=== PATIENT | female | born 1985 | race Caucasian/White ===

== ENCOUNTER 2019-11-07 07:51 | Inpatient (IN) ==
[2019-11-07] MEDS ORDERED: OXYTOCIN 30 UNITS/500 ML BAG IV PRN ×3 (08:19→20:58)
[2019-11-07 08:38] LABS: Hemoglobin 12.2 g/dL (12.0-16.0); Mean Corpuscular Hemoglobin 30.3 pg (25-34); Mean Corpuscular Volume 91.8 fL (80-100); Mean Platelet Volume 10.8 fL (7.4-10.4); Platelet Count 272 K/uL (130-400); RDW Standard Deviation 46.7 fL (36.4-46.3); Red Blood Count 4.03 M/uL (4.2-5.4); White Blood Count 10.28 K/uL (4.8-10.8)
--- NOTE | 2019-11-07 09:57 | History & Physical Report ---
Date of Service November 07, 2019 Assessment & Plan (1) : Admit, IV fluids, EFM/toco. Cole bulb inserted, tolerated well. Inflated to 35cc sterile fluid. Plans for epidural. History of Present Illness Chief Complaint: induction of labor Primary Care Provider: Armani Monson MD 34yo @ 40 0/7 here for IOL. complicated by hypothyroidism and IVF/ICSI conception. + movement, no vaginal bleeding, no leaking fluid. Rare ctx. Allergies Allergy/AdvReac Type Severity Reaction Status Date / Time No Known Allergies Allergy Verified 11/07/19 08:01 Home Medications Home Medications Medication Instructions Recorded Confirmed Type vit-iron fum-folic ac 1 tab PO DAILY 11/02/19 11/07/19 History [ Vitamin] levothyroxine 125 mcg PO DAILY 11/07/19 11/07/19 History Patient History Medical History Alexander's thyroiditis (Chronic) Surgical History S/P myringotomy with insertion of tube S/P surgical removal of pilonidal cyst S/P tonsillectomy S/P wisdom tooth extraction S/P wrist surgery Family History Grandfather (Maternal) Diabetes Father Heart disease Grandfather (Maternal) Hypertension Grandfather (Maternal) Kidney disease Mother Thyroid disease Social History Preferred Language: [place] Islander Mosaicist Required: No Beliefs That Will Affect Care: None marital status: marital status details: Antonino Jimenez (35) [phone] Current Living Situation: Family Current Living Situation Comment: no pets current occupational status: employed current occupation: Faculty [employer] Other Information That Helps Us Care for You: No Feels Safe at Home: Yes Safety Concerns: Feels Safe At This Time Smoking Status: Never smoker Second Hand Exposure: No ; Hx Alcohol Use: No Hx Substance Use: No Review of Systems All systems reviewed & are unremarkable except as noted in HPI & below Physical Exam Physical Exam: FHT Cat 1 [place]ilvie rare SVE 390/-2 Constitutional: WD/WN, vitals as above Respiratory: normal respiratory effort, lungs clear to auscultation no respiratory distress Cardiovascular: Rate/Rhythm: regular rate and regular rhythm Gastrointestinal (Abdomen): Inspection/Auscultation: abdomen normal to inspection Percussion/Palpation: abdomen soft; abdomen nontender Gravid. No s/s chorio or abruption. Skin: no rashes, warm and dry Psychiatric: A+Ox3, euthymic affect Results & Data Vital Signs (Past 12 Hours) Vital Signs Temp Pulse Resp BP 11/07/19 08:07 36.3 C L 20 11/07/19 07:58 105 H 129/84 Coding Level of Care Code None Diagnoses Z34.90
[2019-11-07] MEDS: LACTATED RINGER'S 1,000 ML IV PRN ×2 (10:23→13:37)
--- NOTE | 2019-11-07 13:02 | Labor Progress Brief Note ---
Date of Service November 07, 2019 Subjective Comfortable with ctx. FHT Cat 1, More[place] Q 2 SVE 5-6/80/-1 AROM clear fluid. Results & Data Vital Signs (Past 12 Hours) Vital Signs Temp Pulse Resp BP 11/07/19 12:26 77 122/78 11/07/19 12:00 36.4 C L 11/07/19 11:26 74 113/68 11/07/19 10:28 75 132/85 11/07/19 08:07 36.3 C L 11/07/19 07:58 105 H 129/84 Coding Level of Care Code None
[2019-11-07] MEDS ORDERED: ePHEDrine sulfate 50 MG/ML AMP ONE ×2 (13:20→16:39)
[2019-11-07] MEDS ORDERED: BUPIVACAINE 0.25% 30 ML VIAL ONE ×2 (13:21→16:39)
[2019-11-07] MEDS ORDERED: fentaNYL citrate 100 MCG/2 ML VIAL ONE ×3 (13:21→16:39)
[2019-11-07] MEDS ORDERED: fentaNYL 2MCG/ML ROPIV 1.25MG/ML 100 ML BAG EPI ONE ×2 (13:22→16:40)
--- NOTE | 2019-11-07 13:28 | Anesthesiology Consultation ---
Date of Service November 07, 2019 Assessment & Plan (1) Hypothyroidism: Chart Review Chart Review: Acceptable Risk for Labor Epidural Consults Requested none ASA ASA2 Proposed Anesthesia Anesthesia Type: Labor Epidural Risk / Benefits Reviewed With: PT / POA / Parent / Guardian, Accepts Plan and Informed Consent Obtained History Height/Weight Height: 5 ft 6 in Weight: 93.894 kg Allergies Allergy/AdvReac Type Severity Reaction Status Date / Time No Known Allergies Allergy Verified 11/07/19 08:01 Medications Home Medications Medication Instructions Recorded Confirmed Last Taken vit-iron fum-folic ac 1 tab PO DAILY 11/02/19 11/07/19 11/06/19 [ Vitamin] levothyroxine 125 mcg PO DAILY 11/07/19 11/07/19 11/07/19 Active Medications Generic Name Dose Route Start Last Admin Trade Name Freq PRN Reason Stop Dose Admin Lactated Ringer's 1,000 mls @ 125 mls/hr 11/07/19 08:19 11/07/19 13:37 Lr IV 11/09/19 08:18 999 mls/hr .Q8H PRN Administration L&D Protocol Protocol Oxytocin 30 units in 500 mls @ 11 mls/hr 11/07/19 08:44 11/07/19 13:26 Pitocin IV 11/09/19 08:43 0.66 units/hr .Q24H PRN 11 mls/hr Labor Induction/Augmentation Titration Protocol 0.66 UNITS/HR NPO Date Last Intake of Fluids: 11/07/19 Time Last Intake of Fluids: 12:00 Date Last Intake of Solids: 11/07/19 Time Last Intake of Solids: 07:00 Past Medical History Medical History (Updated 11/07/19 @ 13:26 by Kamille Ch DO) Alexander's thyroiditis (Chronic) Hypothyroidism (Inactive) Exercise / Class Metabolic Activity II 4-5 Yardwork/Stairs/Walk up hill Past Family History Family History Grandfather (Maternal) Diabetes Father Heart disease Grandfather (Maternal) Hypertension Grandfather (Maternal) Kidney disease Mother Thyroid disease Past Surgical History Surgical History S/P myringotomy with insertion of tube S/P surgical removal of pilonidal cyst S/P tonsillectomy S/P wisdom tooth extraction S/P wrist surgery Past Anesthesia History No Hx of Anesthesia Complications and No Family Hx of Anesthesia Complications History of PONV No Hx of PONV and No Hx of Motion Sickness Social History Smoking Status: Never smoker Hx Alcohol Use: No Hx Substance Use: No substance use type: does not use Physical Exam Vital Signs Last Vital Signs Temp 36.4 C L 11/07/19 12:00 Pulse 77 11/07/19 12:26 Resp 20 11/07/19 12:00 BP 122/78 11/07/19 12:26 ENMT Mouth: no TMJ abnormality Thyromental Distance: > or= 3.5 Finger Breadths Mallampati Class: II Neck normal visual inspection and trachea midline; neck extension not limited Respiratory normal respiratory effort Auscultation: lungs clear to auscultation bilaterally Cardiovascular Rate/Rhythm: regular rate and regular rhythm Heart Sounds: no murmur Musculoskeletal Spine: normal cervical ROM Extremities: full ROM of extremities Neurologic moves all extremities Psychiatric Orientation: alert and oriented x 3 Testing Laboratory Results 11/07/19 08:27
[2019-11-07] MEDS ORDERED: ONDANSETRON INJ 2 MG/ML 2 ML VIAL IV PRN (13:57)
[2019-11-07] MEDS ORDERED: ePHEDrine sulfate 50 MG/ML AMP IV PRN (13:57)
[2019-11-07] MEDS ORDERED: NALOXONE HCL 1 MG in SODIUM CHLORIDE 0.9% 1000ML 1,000 ML IV PRN (13:57)
[2019-11-07] MEDS ORDERED: NALOXONE HCL 0.4 MG/1 ML VIAL/CARP IV PRN (13:57)
[2019-11-07] MEDS ORDERED: METOCLOPRAMIDE HCL 20 MG in SODIUM CHLORIDE 0.9% 50 ML IV PRN (13:57)
[2019-11-07] MEDS ORDERED: DiphenhydrAMINE HCL 50 MG/ML VIAL IV PRN (13:57)
[2019-11-07] MEDS ORDERED: PROMETHAZINE HCL 25 MG in SODIUM CHLORIDE 0.9% 50 ML IV PRN (13:57)
[2019-11-07] MEDS ORDERED: NALBUPHINE HCL INJ 10 MG/ML AMP IV PRN (13:57)
[2019-11-07] MEDS: fentaNYL 2MCG/ML ROPIV 1.25MG/ML 100 ML BAG EPI PRN ×3 (15:23→20:19)
--- NOTE | 2019-11-07 20:09 | Labor Progress Brief Note ---
Date of Service November 07, 2019 Subjective Feeling urge to push with ctx. Starting to push. Anticipate . Results & Data Vital Signs (Past 12 Hours) Vital Signs Temp Pulse Resp BP Pulse Ox 11/07/19 20:06 95 H 99 11/07/19 20:01 129 H 98 11/07/19 19:57 98 H 149/84 H 11/07/19 19:56 88 97 11/07/19 19:51 82 97 11/07/19 19:46 79 98 11/07/19 19:42 74 113/66 11/07/19 19:41 75 97 11/07/19 19:36 77 97 11/07/19 19:31 75 97 11/07/19 19:27 79 119/64 11/07/19 19:26 86 117/70 97 11/07/19 19:21 75 98 11/07/19 19:16 79 99 11/07/19 19:12 78 123/75 11/07/19 19:11 81 98 11/07/19 19:06 86 99 11/07/19 19:05 37.3 C 18 11/07/19 19:01 86 98 11/07/19 18:56 78 140/86 98 11/07/19 18:51 73 98 11/07/19 18:46 79 99 11/07/19 18:45 18 11/07/19 18:41 85 135/85 100 11/07/19 18:36 83 100 11/07/19 18:31 92 H 18 99 11/07/19 18:26 85 140/87 100 11/07/19 18:21 100 H 99 11/07/19 18:16 80 16 99 11/07/19 18:12 75 137/78 11/07/19 18:11 77 99 11/07/19 18:08 18 11/07/19 18:06 69 99 11/07/19 18:01 71 18 99 11/07/19 17:57 67 113/64 11/07/19 17:56 71 18 99 11/07/19 17:51 63 99 11/07/19 17:46 73 99 11/07/19 17:43 65 109/61 11/07/19 17:41 69 99 11/07/19 17:40 18 11/07/19 17:36 72 99 11/07/19 17:31 74 99 04/15/20 17:26 69 100 11/07/19 17:25 75 18 115/60 11/07/19 17:21 74 100 11/07/19 17:19 77 20 114/64 11/07/19 17:16 87 100 11/07/19 17:14 80 18 115/61 11/07/19 17:11 36.7 C 80 18 115/59 L 99 11/07/19 17:07 80 18 115/59 L 11/07/19 17:06 77 99 11/07/19 17:05 92 H 117/61 11/07/19 17:03 84 118/61 11/07/19 17:02 85 122/58 L 11/07/19 17:01 90 97 11/07/19 16:59 77 116/60 11/07/19 16:58 77 114/56 L 11/07/19 16:56 88 176/83 H 98 11/07/19 16:54 76 159/94 H 11/07/19 16:52 86 179/99 H 11/07/19 16:51 82 98 11/07/19 16:46 74 97 11/07/19 16:41 72 96 11/07/19 16:38 69 160/67 H 11/07/19 16:36 78 149/79 H 95 11/07/19 16:35 68 93 11/07/19 16:31 68 94 11/07/19 16:30 70 94 11/07/19 16:26 69 97 11/07/19 16:21 75 96 11/07/19 16:19 71 158/100 H 11/07/19 16:18 71 94 11/07/19 16:17 68 155/95 H 11/07/19 16:16 72 94 11/07/19 16:15 71 158/97 H 11/07/19 16:13 70 154/91 H 92 11/07/19 16:11 74 136/89 95 11/07/19 16:09 75 138/90 11/07/19 16:07 69 139/87 94 11/07/19 16:06 74 99 11/07/19 16:05 70 143/87 H 11/07/19 16:03 69 142/84 H 11/07/19 16:01 78 22 154/90 H 99 11/07/19 15:59 75 147/85 H 11/07/19 15:56 78 98 11/07/19 15:51 72 97 11/07/19 15:46 68 96 11/07/19 15:45 71 157/87 H 11/07/19 15:44 69 94 11/07/19 15:41 76 98 11/07/19 15:36 75 98 11/07/19 15:31 73 97 11/07/19 15:30 72 134/79 11/07/19 15:26 73 98 11/07/19 15:21 80 97 11/07/19 15:16 80 99 11/07/19 15:15 80 136/82 11/07/19 15:11 85 98 11/07/19 15:06 78 97 11/07/19 15:04 36.7 C 76 20 135/73 98 11/07/19 15:01 36.7 C 77 20 129/73 98 11/07/19 14:56 73 98 11/07/19 14:51 73 98 11/07/19 14:46 77 98 11/07/19 14:45 74 18 134/73 11/07/19 14:41 80 98 11/07/19 14:36 80 98 11/07/19 14:31 80 99 11/07/19 14:28 85 20 127/84 11/07/19 14:26 92 H 98 11/07/19 14:21 80 20 137/82 98 11/07/19 14:16 83 139/84 98 11/07/19 14:12 81 20 139/84 11/07/19 14:11 82 98 11/07/19 14:06 86 20 130/78 97 11/07/19 14:01 88 98 11/07/19 14:00 89 18 139/81 11/07/19 13:56 86 98 11/07/19 13:55 88 18 137/85 11/07/19 13:53 85 18 136/86 11/07/19 13:51 88 18 141/104 H 98 11/07/19 13:50 36.8 C 11/07/19 13:49 82 137/97 11/07/19 13:47 82 20 135/98 11/07/19 13:46 82 99 11/07/19 13:45 73 18 138/95 11/07/19 13:41 84 99 11/07/19 13:28 76 100 11/07/19 12:26 77 20 122/78 11/07/19 12:00 36.4 C L 20 11/07/19 11:26 74 113/68 11/07/19 10:28 75 132/85 Coding Level of Care Code None
[2019-11-07] MEDS ORDERED: METHYLERGONOVINE MALEATE 0.2 MG/ML AMP ONE (20:35)
--- NOTE | 2019-11-07 20:52 | Delivery Summary ---
Vaginal Delivery Summary Date of Service November 07, 2019 Vaginal Delivery Summary Vaginal Delivery Summary: Pre-delivery diagnoses: 34yo @ 40 0/7 here for IOL. complicated by hypothyroidism and IVF/ICSI conception. Post-delivery diagnoses: same Procedure: spontaneous vaginal delivery, repair of 1st degree perineal laceration Surgeon: Shahrzad Valente DO Complications: none Findings: Viable female . Apgars: 9/9 . Weight pending, please see [facility] records Estimated blood loss: 300ml Description of delivery: The patient progressed to complete with epidural anesthesia. She then began to push. She spontaneously vaginally delivered a viable from the cephalic presentation. The head delivered in MARVIN position. No nuchal cord noted. The anterior shoulder delivered, followed by the posterior shoulder, followed by the body. The baby was placed on mother's abdomen and a spontaneous cry was heard. Delayed cord clamping was employed, and the cord was doubly clamped and cut. Cord blood was obtained. The placenta was delivered spontaneously intact with a 3-vessel cord. The uterus and vagina were swept of clots and debris. IV pitocin was given. The uterus became firm. The cervix, vagina, and perineum were inspected and a first degree perineal laceration was noted and repaired in standard fashion with 3-0 vicryl. Excellent hemostasis was observed. The mother and baby are recovering in stable and good condition in the room. Sponge, needle, and instrument counts were correct x 2. Shahrzad Valente DO [facility]
[2019-11-07] MEDS ORDERED: SUPERCREAM 0.870% 15 GM JAR EXT PRN (20:58)
[2019-11-07] MEDS ORDERED: OXYCODONE/ACETAMINOPHEN 5mg/325mg TAB PO PRN (20:58)
[2019-11-07] MEDS ORDERED: HYDROCORTISONE ACETATE 25 MG SUPP PR PRN (20:58)
[2019-11-07] MEDS ORDERED: DIPHTHERIA/TETANUS/PERTUSSIS 0.5 ML SYR/VIAL IM ONE (20:58)
[2019-11-07] MEDS ORDERED: IBUPROFEN 600 MG TAB PO PRN (20:58)
[2019-11-07] MEDS ORDERED: ACETAMINOPHEN 325 MG TAB PO PRN (20:58)
[2019-11-07] MEDS ORDERED: BENZOCAINE 20% AER SPR 82.5 GM CAN EXT PRN (20:58)
[2019-11-07] MEDS: DOCUSATE SODIUM 100 MG CAP PO SCH (22:19)
[2019-11-08] MEDS: LEVOTHYROXINE SODIUM 125 MCG TABLET PO SCH (06:20)
[2019-11-08 06:40] LABS: Hematocrit (blood only) 37.9 % (37-47); Hemoglobin 12.7 g/dL (12.0-16.0)
--- NOTE | 2019-11-08 07:11 | Anesthesia Procedure Note ---
Date of Service November 08, 2019 Anesthesia Post Epidural Note Vital Signs Vital Signs: Temp Pulse Resp BP Pulse Ox 37.1 C 91 H 20 122/75 98 11/08/19 03:15 11/08/19 03:15 11/08/19 03:15 11/08/19 03:15 11/07/19 20:46 Pain Intensity Abdomen: Pain Intensity: 1 Notes Mental Status: alert / awake / arousable Nausea / Vomiting: adequately controlled Pain: adequately controlled Airway Patency, RR, SpO2: stable & adequate BP & HR: stable & adequate Hydration State: stable & adequate Neuraxial Anesthesia: was administered and sensory block is resolving Anesthetic Complications: no major complications apparent and Pt Satisfied with anesthetic care Epidural: Removed without complications and With tip intact
--- NOTE | 2019-11-08 07:39 | Obstetrical Progress Note ---
Date of Service November 08, 2019 Assessment & Plan (1) : PPD#1 doing well. No concerns. Routine care. If she desires discharge home later, ok for this. Reviewed instructions. RTO 6w. Subjective Ambulation: ambulating normally Voiding: no voiding problems Diet Tolerance:: regular diet Lochia:: Moderate Feeding Type:: breast feeding Review of Systems All systems reviewed & are unremarkable except as noted in HPI & below Physical Exam Constitutional WD/WN, vitals as above no acute distress Respiratory normal respiratory effort Cardiovascular Rate/Rhythm: regular rate and regular rhythm Gastrointestinal (Abdomen) Inspection/Auscultation: abdomen normal to inspection; abdomen not distended Percussion/Palpation: abdomen soft Genitourinary OB Exam Abdomen: + fundal height Fundus: + firm; not tender Results & Data Vital Signs (Past 12 Hours) Vital Signs Temp Pulse Pulse Resp BP BP Pulse Ox 11/08/19 03:15 37.1 C 91 H 20 122/75 11/07/19 23:15 37.0 C 101 H 101 H 18 129/81 129/81 11/07/19 22:45 37.2 C 96 H 18 139/84 11/07/19 22:30 90 139/82 11/07/19 22:19 96 H 16 136/87 11/07/19 22:00 85 123/78 11/07/19 21:45 37.2 C 80 18 135/80 11/07/19 21:30 93 H 16 136/75 11/07/19 21:15 98 H 16 141/82 H 11/07/19 21:00 94 H 16 132/86 11/07/19 20:46 37.2 C 103 H 18 132/79 98 11/07/19 20:41 115 H 98 11/07/19 20:36 111 H 96 11/07/19 20:31 113 H 97 11/07/19 20:28 108 H 91 11/07/19 20:26 89 152/77 H 97 11/07/19 20:21 86 98 11/07/19 20:16 86 97 11/07/19 20:11 92 H 137/76 98 11/07/19 20:06 95 H 99 11/07/19 20:01 129 H 98 11/07/19 19:57 98 H 149/84 H 11/07/19 19:56 88 97 11/07/19 19:51 82 97 11/07/19 19:46 79 98 11/07/19 19:42 74 113/66 11/07/19 19:41 75 97
[2019-11-08] MEDS: PRENATAL VITAMIN 1 TAB PO SCH (09:31)
[2019-11-08] MEDS: DOCUSATE SODIUM 100 MG CAP PO SCH ×2 (09:31→21:27)
[2019-11-08] MEDS: bisacodyL 5 MG TABEC PO SCH ×2 (20:30→21:13)
--- NOTE | 2019-11-09 06:53 | Obstetrical Progress Note ---
Date of Service November 09, 2019 Assessment & Plan (1) Encounter for visit: Day 2 . Doing well. Stable for discharge Subjective Ambulation: ambulating normally Voiding: no voiding problems Passing Gas:: Yes Diet Tolerance:: regular diet Lochia:: Moderate Physical Exam Constitutional WD/WN, vitals as above Respiratory normal respiratory effort; no respiratory distress and no labored breathing Gastrointestinal (Abdomen) Inspection/Auscultation: abdomen normal to inspection; abdomen not distended Percussion/Palpation: abdomen soft; abdomen nontender, no guarding and abdomen not rigid Genitourinary OB Exam Abdomen: + fundal height Fundus: + firm and + relation to umbilicus (Below); not tender and not boggy Results & Data Vital Signs (Past 12 Hours) Vital Signs Temp Pulse Pulse Resp BP BP 11/08/19 23:40 36.9 C 87 18 125/80 11/08/19 19:50 36.9 C 106 H 106 H 20 128/83 128/83
[2019-11-09] MEDS ORDERED: bisacodyL 10 MG SUPP PR PRN (07:00)
[2019-11-09] MEDS: LEVOTHYROXINE SODIUM 125 MCG TABLET PO SCH (07:21)
[2019-11-09] MEDS: PRENATAL VITAMIN 1 TAB PO SCH (09:16)
[2019-11-09] MEDS: DOCUSATE SODIUM 100 MG CAP PO SCH (09:16)
== END 2019-11-09 13:30 | disposition home or self-care (01) | DRG 807 ==
LOC: 4S1 07:51 → 4S2 23:14